=== PATIENT | female | born 1980 | race Caucasian/White ===

== ENCOUNTER 2022-03-28 10:02 | Emergency (ER) | payer SELFPAY ==
[2022-03-28 11:02] LABS: HEMOGLOBIN 14.7 gm/dl (12.3-15.3); RED BLOOD COUNT 4.68 M/UL (4.00-5.10); WHITE BLOOD COUNT 9.2 K/UL (4.5-11.0)
[2022-03-28 11:19] LABS: BUN/CREATININE RATIO 13 (0-10)
== END 2022-03-28 15:42 | disposition home or self-care (01) ==
LOC: ER1 10:02
DX: R07.89 Other chest pain (principal)
CPT/HCPCS: 71046; 80053; 82550; 82553; 84484; 84703; 85025; 85379; 93005; 96374; 99285; J1885